=== PATIENT | male | born 2000 | race Caucasian/White ===

== ENCOUNTER → 2020-01-05 | Outpatient (CLI) | payer BC ==
--- NOTE | 2020-01-06 16:00 | ECHOF ---
Referral Reason:R07.89 other chest pain MEASUREMENTS -------- HEIGHT: 180.3 cm WEIGHT: 81.7 kg BP: RVIDd: 2.7 cm (< 3.3) IVSd: 0.7 cm (0.6 - 1.1) LVIDd: 5.1 cm (3.9 - 5.3) LVPWd: 0.9 cm (0.6 - 1.1) IVSs: 1.3 cm LVIDs: 3.3 cm LVPWs: 1.3 cm LAESV Index (A-L): 22.64 ml/m Ao Diam: 2.5 cm (2.0 - 3.7) AV Cusp: 2.2 cm (1.5 - 2.6) LA Diam: 2.9 cm (2.7 - 3.8) MV EXCURSION: 10.325 mm (> 18.000) MV EF SLOPE: 158 mm/s (70 - 150) EPSS: 0.8 cm MV E Julio: 0.97 m/s MV DecT: 355 ms MV A Julio: 0.49 m/s MV E/A Ratio: 1.99 RAP: 5.00 mmHg RVSP: 20.47 mmHg TAPSE: 22.21 mm FINDINGS -------- Sinus rhythm. This was a technically good study. LV size, wall thickness and systolic function are normal, with an EF greater than 55%. The left manuel tricular size is normal. The diastolic filling pattern is normal for the age of the patient 3.53. The right ventricle is normal in size. The right ventricular systolic function is normal. Normal LA size by volume 22+/-6 ml/m2. The right atrial size is normal. Interatrial and interventricular septum intact. The aortic valve is trileaflet, and appears structurally normal. No aortic stenosis or regurgitation. The mitral valve is normal. Mild mitral regurgitation is present. The tricuspid valve appears structurally normal. Mild tricuspid regurgitation present. Right vent ricular systolic pressure is normal at < 35 mmHg. Trace/mild (physiologic) pulmonic regurgitation. The aortic root size is normal. Normal inferior vena cava with normal inspiratory collapse consistent with estimated right atrial pre ssure of 5 mmHg. There is no pericardial effusion. CONCLUSIONS -------- 1. LV size, wall thickness and systolic function are normal, with an EF greater than 55%. 2. The diastolic filling pattern is normal for the age of the patient 3.53 3. Normal LA size by volume 22+/-6 ml/m2. 4. The aortic valve is trileaflet, and appears structurally normal. No aortic stenosis or regurgitati on. 5. Mild mitral regurgitation is present. 6. Mild tricuspid regurgitation present. 7. Trace/mild (physiologic) pulmonic regurgitation. 8. There is no pericardial effusion. INTERNAL INVESTIGATOR: Amirah Tee RDCS
== END | disposition home or self-care (01) ==
LOC: RADECHMAIN 11:29
PROVIDERS: ATTEND Family Medicine
DX: I08.8 Other rheumatic multiple valve diseases (principal)
CPT/HCPCS: 93306

== ENCOUNTER → 2020-01-20 | Day surgery (SDC) | payer BC ==
[2020-01-18 14:43] VITALS: BMI 24.5
[~2020-01-20] MED LIST: DEXAMETHASONE SOD PHOSPHATE 10 MG/ML 1 ML VIAL IV ONE; DEXAMETHASONE SOD PHOSPHATE 10 MG/ML 1 ML VIAL ONE; DEXAMETHASONE SOD PHOSPHATE 4 MG/ML 1 ML VIAL IV ONE; FAMOTIDINE 20 MG/2 ML VIAL IV ONE; HYDROcodone/APAP 7.5-325MG 1 EACH TAB ONE; HYDROcodone/APAP 7.5-325MG 1 EACH TAB PO ONE; HYDROmorphone 0.5 MG/0.5 ML SYRINGE IVP ONE; LACTATED RINGERS 1,000 ML IV ONE; LIDOCAINE 1% (10MG/ML) FOR IV START INTRADERMA ONE; LIDOCAINE 1% INJ 10MG/ML (20 ML MDV) ONE; MIDAZOLAM 2 MG/2 ML VIAL ONE; ONDANSETRON 4 MG/2 ML VIAL IVP ONE; ONDANSETRON 4 MG/2 ML VIAL ONE; PROPOFOL 10 MG/ML 20 ML VIAL IV ONE; SUCCINYLCHOLINE CHLORIDE 100 MG/5 ML SYR IV ONE; fentaNYL (PF) 50 MCG/ML 2 ML AMP ONE
[2020-01-20 06:50] VITALS: RESP 16
--- NOTE | 2020-01-20 08:21 | P.OP ---
Date of Procedure: 01/20/20 Preoperative Diagnosis: Chronic tonsillitis Chronic cryptic tonsillitis Hypertrophied tonsils Postoperative Diagnosis: Same Procedure(s) Performed: Tonsillectomy Anesthesia: BRIAN Surgeon: Yoan Fernando Estimated Blood Loss (ml): 2 Pathology: other (Tonsils) Condition: stable Disposition: PACU Indications for Procedure: This is a 19-year-old white male whose had difficulties with chronic cryptic tonsillitis and tonsillar hypertrophy as well as recurrent tonsillitis Operative Findings: Tonsils are 3. 5 bilaterally are cryptic was sulfur granules in the crypts Description of Procedure: PROCEDURE: The patient brought to the operating suite and was placed in the supine position. The patient underwent induction of anesthesia with oral endotracheal intubation without difficulty. The patient is positioned with a head donut and shoulder roll. The patient was prepped and draped in the usual aseptic fashion. The left tonsil was then grasped with a curved Allis clamp and then dissected from the tonsillar fossa in a superior to inferior direction using both blunt and electrocautery dissection in the superior to inferior direction until the tonsil was removed. Once the tonsil was removed, hemostasis was gained with suction cautery. Once hemostatic was obtained the attention was turned to the right where the right tonsil was removed exactly as the left had been. Once this tonsil was removed, hemostasis was gained with suction cautery. Once this tonsil was removed, hemostasis was gained with suction cautery. Once hemostasis was obtained and remained good in both tonsillar fossae as well as the nasopharynx, the patient was suction in oral gastric fashion and the McIvor mouth gag was removed. The patient was allowed to emerge from general anesthesia having tolerated the procedure well. He was extubated in the operating suite and transferred to the postoperative recovery area in satisfactory condition.
[2020-01-20 08:39] VITALS: TEMP 97.7
[2020-01-20 09:49] VITALS: BP 130/80; PULSE 66
== END | disposition home or self-care (01) ==
LOC: OR 06:30
PROVIDERS: ATTEND Otolaryngology
DX: J03.81 Acute recurrent tonsillitis due to other specified organisms (principal); A42.89 Other forms of actinomycosis; J35.01 Chronic tonsillitis; J35.8 Other chronic diseases of tonsils and adenoids; K21.9 Gastro-esophageal reflux disease without esophagitis; Z98.818 Other dental procedure status; Z82.49 Family history of ischemic heart disease and other diseases of the circulatory system
CPT/HCPCS: 88304; 42826; J2250; J1100; J2405; J0690; J2001; J3010; J0330; J2704; J1170